=== PATIENT | male | born 1945 ===

== ENCOUNTER 2020-02-23 15:08 | Outpatient (REF) | payer MEDICARE, BC, SELFPAY ==
[2020-02-24 17:47] LABS: PSA, Diagnostic 3.2 ng/mL (0.0-6.5)
== END 2020-02-23 15:28 ==
LOC: NCHCN 15:08
PROVIDERS: Visit Provider Internal Medicine
DX: R97.20 Elevated prostate specific antigen [PSA] (principal)
CPT/HCPCS: 84153